=== PATIENT | female | born 1990 | race Hispanic/Latino ===

== ENCOUNTER 2018-09-23 20:44 | Emergency (ER) | payer BC ==
[2018-09-23 20:52] VITALS: BP 121/75; PULSE 77; RESP 16; TEMP 98; O2SAT 97
[2018-09-23] MEDS ORDERED: Tdap Vaccine 0.5 ml Vial (10-64 yrs) IM ONE ×2 (21:43→22:01)
--- NOTE | 2018-09-23 21:51 | ED PDOC ---
Upper Extremity Pain/Injury Time Seen by Provider: 09/23/18 21:02 Chief Complaint (Nursing): Finger,Hand,&Wrist Chief Complaint (Provider): Right pointer finger injury History Per: Patient History/Exam Limitations: no limitations Onset/Duration Of Symptoms: Mins Current Symptoms Are (Timing): Still Present Additional Complaint(s): 27yo female, otherwise well, comes to ER for evaluation of laceration to right pointer finger, sustained while cooking. Patient states she was cutting a chicken when her knife slipped and she subsequently injured herself. She is unsure if her tetanus vaccination is up to date. Patient otherwise denies any numbness or tingling in her finger. Past Medical History Reviewed: Historical Data, Nursing Documentation, Vital Signs Vital Signs: Last Vital Signs Temp 98 F 09/23/18 20:49 Pulse 77 09/23/18 20:49 Resp 16 09/23/18 20:49 BP 121/75 09/23/18 20:49 Pulse Ox 97 09/23/18 20:49 - Medical History PMH: No Chronic Diseases Denies: Diabetes, HTN, Hyperlipidemia - Surgical History Surgical History: No Surg Hx - Family History Family History: States: No Known Family Hx - Allergies Allergies/Adverse Reactions: Allergies Allergy/AdvReac Type Severity Reaction Status Date / Time No Known Allergies Allergy Verified 09/23/18 20:48 Review of Systems ROS Statement: Except As Marked, All Systems Reviewed And Found Negative Musculoskeletal: Positive for: Hand Pain (laceration to right pointer finger) Physical Exam - Reviewed Nursing Documentation Reviewed: Yes Vital Signs Reviewed: Yes - Physical Exam Appears: Positive for: Non-toxic, No Acute Distress Pulses-Radial (R): 2+ Extremity: Positive for: Normal ROM (FROM of DIP and PIP on right 2nd digit), Capillary Refill (< 2 seconds), Other (avulsion laceration noted to lateral aspect of right 2nd digit, distal to the PIP. Minimal bleeding. Good apposition of skin without tension. No erythema or drainage noted.). Negative for: Deformity Neurologic/Psych: Positive for: Alert, Oriented. Negative for: Motor/Sensory Deficits - ECG O2 Sat by Pulse Oximetry: 97 (RA) Pulse Ox Interpretation: Normal Medical Decision Making Medical Decision Making: Impression: Avulsion laceration Plan: -- Tetanus booster -- Wound cleaned with normal saline under pressure; steri-strips applied with good wound approximation -- Patient tolerated procedure well. Patient informed on wound care, and return instructions provided. Scribe Attestation: Documented by Kaya Calvin acting as a scribe for GREGORIO Marie. Provider Attestation: All medical record entries made by the Scribe were at my direction and personally dictated by me. I have reviewed the chart and agree that the record accurately reflects my personal performance of the history, physical exam, medic al decision making, and the department course for this patient. I have also personally directed, reviewed, and agree with the discharge instructions and disposition. Disposition - Clinical Impression Clinical Impression: Finger avulsion - Patient ED Disposition Is Patient to be Admitted: No - Disposition Referrals: Mark Flynn MD [Staff Provider] - Disposition: Routine/Home Disposition Time: 22:18 Condition: STABLE Additional Instructions: Keep finger clean and dry with dressing in place for the next 24hrs and then remove the dressing and clean the area gently with soap and water. Then can leave open to the air. Do not attempt to remove steri strips. They will come off on their own. You received a tetanus vaccine today. Instructions: Wound Care (DC), Common Finger Injuries (DC) Forms: [employer] (Romanian) Print Language: MACEDONIAN
== END 2018-09-23 22:19 | disposition home or self-care (01) ==
LOC: H.ER 20:44
DX: S61.200A Unspecified open wound of right index finger without damage to nail, initial encounter (principal); W26.0XXA Contact with knife, initial encounter; Y92.000 Kitchen of unspecified non-institutional (private) residence as the place of occurrence of the external cause